=== PATIENT | male | born 1945 | race Asian ===

== ENCOUNTER 2023-02-13 08:37 | Inpatient (IN) | payer OTHER ==
[~2023-02-13] VITALS: Ht 157.5 cm; Wt 63.2 kg
[~2023-02-13 08:37] MED LIST: ceFAZolin SODIUM 2 GM in D5W 100 ML IV ONE
[2023-02-13] MEDS ORDERED: LR 1,000 ML IV.SOLN IV ONE (11:56)
[2023-02-13] MEDS ORDERED: WATER FOR IRRIGATION,STERILE 1,000 ML IRRIG.SOLN IR ONE (11:56)
[2023-02-13] MEDS ORDERED: ROCURONIUM BROMIDE 10 MG/ML (ZEMURON) ONE (11:56)
[2023-02-13] MEDS ORDERED: SEVOFLURANE 15 MIN GAS INH ONE (11:56)
[2023-02-13] MEDS ORDERED: SUCCINYLCHOLINE CHLORIDE 20 MG/ML(QUELICIN) ONE (11:56)
[2023-02-13] MEDS ORDERED: PROPOFOL 200MG/ 20ML VIAL (DIPRIVAN) IV ONE (11:56)
[2023-02-13] MEDS ORDERED: BUPIVACAINE /PF 0.25% 30 ML VIAL INJ ONE (11:56)
[2023-02-13] MEDS ORDERED: NS IRRIG SOLN 1000 ML IR ONE (11:56)
[2023-02-13] MEDS ORDERED: ONDANSETRON HCL 4 MG/2 ML VIAL ONE (11:56)
[2023-02-13] MEDS ORDERED: GLYCOPYRROLATE 0.2 MG/ML VIAL ONE (11:56)
[2023-02-13] MEDS ORDERED: NEOSTIGMINE METHYLSULFATE 1 MG/ML, 10 ML VIAL ONE (11:56)
[2023-02-13] MEDS ORDERED: KETOROLAC TROMETHAMINE 30 MG VIAL IVP PRN ×2 (14:45→16:00)
[2023-02-13] MEDS ORDERED: METOCLOPRAMIDE HCL 10 MG/2 ML VIAL IVP PRN ×2 (14:45→16:00)
[2023-02-13] MEDS ORDERED: ONDANSETRON HCL 4 MG/2 ML VIAL IVP PRN ×2 (14:45→16:00)
[2023-02-13] MEDS ORDERED: HYDROmorphone 1 MG/ML INJ. CARTRIDGE IVP PRN ×2 (14:45→16:00)
[2023-02-13] MEDS ORDERED: ACETAMINOPHEN I.V. 1000 MG 100 ML IV ONE (16:00)
[2023-02-13] MEDS ORDERED: ATROPINE SULFATE 1 MG/10 ML SYRINGE IVP ONE (16:00)
[2023-02-13] MEDS ORDERED: ATROPINE SULFATE 0.4 MG/ML VIAL ONE (16:30)
[2023-02-13] MEDS ORDERED: NALOXONE HCL 0.4 MG/ML AMP (NARCAN) ONE (16:30)
[2023-02-13] MEDS ORDERED: HYDROmorphone 1 MG/ML INJ. CARTRIDGE ONE (16:52)
[2023-02-13] MEDS ORDERED: LR 1,000 ML IV SCH (17:00)
--- NOTE | 2023-02-13 17:35 | NUR ---
Admission to floor Pt arrived to floor from PACU via gurney. Pt drowsy and sleepy (pt was given Dilaudid IVP in PACU). Pt's and sister at bedside. VSS. 3 small lap sites on abdomen CDI. IV in left forearm intact and patent infusing IVF's well. Call light within reach. Pt near nurses' station for close observation for needs and care.
[2023-02-13 18:07] VITALS: BP_SYST 131; PULSE 63; RESP 18; TEMP 97.2
--- NOTE | 2023-02-13 18:50 | NUR ---
NOTE Dr Frandy Nelson on the floor and was notified that he has a consult to see pt.
--- NOTE | 2023-02-13 19:15 | NUR ---
OPENING NOTE REPORT RECEIVED FROM DAYSHIFT NURSE. PATIENT RECEIVED LYING IN BED, AWAKE, NO S/S OF ACUTE DISTRESS. BREATHING EVEN AND UNLABORED. NO ACTIVE BLEEDING NOTED. IV SITE PATENT, NO SIGNS OF INFILTRATION OR INFECTION NOTED. CALL LIGHT WITH PATIENT, DEMONSTRATED BACK PROPER USE. BED IS LOCKED AND AT LOWEST POSITION. BED ALARM ON. WILL CONTINUE TO MONITOR.
[2023-02-13 20:00] VITALS: BP_SYST 128; PULSE 68; RESP 18; TEMP 97.8; O2SAT 96
[2023-02-13 21:35] VITALS: BP_SYST 124; PULSE 74; RESP 18; TEMP 97.4
--- NOTE | 2023-02-13 23:00 | NUR ---
ROUNDS PATIENT ASSISTED TO BATHROOM TO VOID, MINIMUM ASSISTANCE NEEDED. PATIENT TOLERATED WELL, GAIT STEADY. ASSISTED BACK TO BED. ALL NEEDS MET. WILL MONITOR.
[2023-02-14 02:17] VITALS: BP_SYST 110; PULSE 54; RESP 19; TEMP 97.2; O2SAT 100
--- NOTE | 2023-02-14 03:00 | NUR ---
ROUNDS PATIENT IN BED, RESTING. NO SIGNS OF DISCOMFORT. ALL NEEDS MET. WILL MONITOR.
[2023-02-14] MEDS ORDERED: traMADol HCL HCL 50 MG TABLET (ULTRAM) PO PRN (04:00)
--- NOTE | 2023-02-14 06:24 | NUR ---
CLOSING NOTE PATIENT IN BED, AWAKE, ALERT, NO S/S OF ACUTE DISTRESS. BREATHING EVEN AND UNLABORED. HOB SLIGHTLY RAISED. IVF INFUSING WELL, IV SITE PATENT, NO SIGNS OF INFILTRATION OR INFECTION NOTED. ALL NEEDS MET THROUGHOUT SHIFT. FALL, SAFETY PRECAUTIONS MAINTAINED THROUGHOUT SHIFT. WILL MONITOR UNTIL PATIENT CARE IS ENDORSED TO ONCOMING DAYSHIFT NURSE.
[2023-02-14 07:57] VITALS: BP_SYST 120; PULSE 61; RESP 18; TEMP 98.3; O2SAT 98
[2023-02-14 08:00] VITALS: O2SAT 98
--- NOTE | 2023-02-14 08:00 | NUR ---
Start of shift Pt ambulated to restroom with steady gait. Pt's bed in low position and side rails raised. Pt near nurses' station for close observation for needs and care. 3 small lap sites intact. Pt's tele unit attached and intact. Pt's HR at 65. No needs noted. Call light within reach.
--- NOTE | 2023-02-14 11:40 | NUR ---
Note Pt's son has been at bedside for a couple of hours. Dr Saeed called (at 1130am) to see if pt's diet can be advanced from Clear liquids diet. Waiting for call back. No needs noted. HR between 58-67 all shift. Call light within reach.
[2023-02-14 12:00] VITALS: BP_SYST 117; PULSE 65; RESP 18; TEMP 98.4; O2SAT 99
--- NOTE | 2023-02-14 14:20 | NUR ---
NOTE Dr Saeed came to pt's bedside to assess pt's incision sites and answer questions/concerns that pt and his son had. Verbal discharge instructions given. EKG was done at bedside and Dr Saeed checked results of EKG.
[2023-02-14 14:53] VITALS: BP_SYST 119; PULSE 66; RESP 18; TEMP 98.6; O2SAT 99
--- NOTE | 2023-02-14 15:50 | NUR ---
DISCHARGE Pt's tele unit dc'd and returned to compliance monitor. IV in RFA dc'd - site benign, no swelling/redness/bleeding noted. Pt and pt's son given discharge instructions, questions/concerns were answered. Pt dressed in street clothes and packed all belongings. Pt and his son checked side table and drawers for belongings. Pt was maintained with safety precautions all shift. Pt was checked on q1' and PRN for needs and care all shift. Pt stable. Pt off the floor via wheelchair with all belongings and discharge paperwork to private car. Pt's HR all shift was between 58-67 (SR)
== END 2023-02-14 15:55 | disposition home or self-care (01) | DRG 352 ==
LOC: SDS 08:37 → SMU 08:39 → SDS 16:33 → STU 16:34
PROVIDERS: ADMIT Surgery; ATTEND Surgery
PROC: 0YUA4JZ Supplement Bilateral Inguinal Region with Synthetic Substitute, Percutaneous Endoscopic Approach (ICD-10-PCS; 2023-02-13)
PROC: 0VBG0ZZ Excision of Left Spermatic Cord, Open Approach (ICD-10-PCS; 2023-02-13)
PROC: 8E0W4CZ Robotic Assisted Procedure of Trunk Region, Percutaneous Endoscopic Approach (ICD-10-PCS; 2023-02-13)
PROC: 0YUE4JZ Supplement Bilateral Femoral Region with Synthetic Substitute, Percutaneous Endoscopic Approach (ICD-10-PCS; principal; 2023-02-13 11:56)
DX: K41.20 Bilateral femoral hernia, without obstruction or gangrene, not specified as recurrent (principal); K40.20 Bilateral inguinal hernia, without obstruction or gangrene, not specified as recurrent; N43.3 Hydrocele, unspecified; I10 Essential (primary) hypertension; E78.5 Hyperlipidemia, unspecified; R00.1 Bradycardia, unspecified; E11.9 Type 2 diabetes mellitus without complications
CPT/HCPCS: 87081; 88300; 88302; 88304; 93005; C1727; C1781; E0190; G0378; J0330; J0461; J1170; J2310; J2405; J2704; J2710; J3490; J7060; J7120